=== PATIENT | male | born 1955 | race Caucasian/White ===

== ENCOUNTER → 2018-07-03 | Outpatient (CLI) | payer BC ==
--- NOTE | 2018-07-03 08:40 | US ---
EXAMINATION TYPE: US abdomen limited DATE OF EXAM: 07/03/2018 COMPARISON: NONE CLINICAL HISTORY: R94.5 Abnormal results of lab liver studies; Meds: HTN, aspirin, inhaler EXAM MEASUREMENTS: Liver Length: 15.9 cm Gallbladder Wall: 0.1 cm CBD: 0.2 cm Right Kidney: 10.3 x 4.8 x 5.6 cm Pancreas: hyperechoic Liver: limitedly seen as surveyed intercostally, but no masses seen Gallbladder: non mobile shadowing gallstone noted in neck in LLD and supine positions; size of stone = 1.1 x 0.8 x 0.5cm Evidence for sonographic Flores's sign: no CBD: wnl Right Kidney: inferior pole shadowing renal stone = 0.7 x 0.7 x 0.4cm. IMPRESSION: 1. Gallstone at the neck of the gallbladder. 2. Nonobstructing inferior pole right renal stone
== END ==
LOC: RADUSWWP 07:03
PROVIDERS: ATTEND Family Medicine
DX: K80.20 Calculus of gallbladder without cholecystitis without obstruction (principal); N20.0 Calculus of kidney
CPT/HCPCS: 76705

== ENCOUNTER 2020-05-22 07:24 | Day surgery (SDC) | payer OTHER ==
[2020-05-18 11:40] VITALS: BMI 28.7
[2020-05-22 07:51] VITALS: RESP 16; TEMP 97
[2020-05-22] MEDS ORDERED: LACTATED RINGERS 1,000 ML IV ONE (07:55)
[2020-05-22] MEDS ORDERED: PROPOFOL 10 MG/ML 20 ML VIAL IV ONE (08:23)
--- NOTE | 2020-05-22 08:58 | P.PCN ---
Date of Procedure: 05/22/20 Description of Procedure: BRIEF HISTORY: Patient is a 64-year-old male presenting for outpatient colonoscopy for history of colon polyps/polyp of the colon. Previously had a colonoscopy in 2016 significant for polypectomy. Denies any change in bowel habits, blood per rectum or abdominal pain. PERFORMED: Colonoscopy with polypectomy. PREOPERATIVE DIAGNOSIS: . Personal history of colon polyps, last colonoscopy 2016. ESTIMATED BLOOD LOSS: Minimal. IV sedation per Anesthesia. PROCEDURE: After informed consent was obtained, the patient, was brought into the endoscopy unit. IV sedation was administered by Anesthesia under continuous monitoring. Digital rectal examination was normal. Initially the Olympus CF-190 flexible video colonoscope was then inserted in the rectum, gradually advanced into the cecum without any difficulty. Careful examination was performed as the scope was gradually being withdrawn. Ileocecal valve and the appendiceal orifice were visualized and appeared normal. Prep was excellent. Mucosa of the cecum, ascending colon, transverse colon, descending colon, sigmoid colon, and rectum appeared normal. Multiple large and small mouth diverticula in the sigmoid colon. Diminutive 2 mm transverse colon polyp removed with cold forcep polypectomy.. Retroflexion was performed in the rectum and no lesions were seen. The patient tolerated the procedure well. IMPRESSION: Diminutive transverse colon polyp removed with cold forcep polypectomy. Moderate sigmoid diverticulosis. RECOMMENDATIONS: Findings of this examination were discussed with the patient and his . Okay to resume diet. Okay to resume medications. Await pathology from polypectomy. Would recommend repeat colonoscopy in 7 years for history of colon polyps, pending pathology from polypectomy.
[2020-05-22 09:16] VITALS: BP 114/66; PULSE 44
== END 2020-05-22 09:37 | disposition home or self-care (01) ==
LOC: ORWHC2ENDO 07:24
PROVIDERS: ATTEND Internal Medicine
DX: Z12.11 Encounter for screening for malignant neoplasm of colon (principal); K63.5 Polyp of colon; K57.30 Diverticulosis of large intestine without perforation or abscess without bleeding; Z86.010 Personal history of colon polyps; I10 Essential (primary) hypertension; J44.9 Chronic obstructive pulmonary disease, unspecified; Z79.899 Other long term (current) drug therapy; Z98.890 Other specified postprocedural states; Z87.891 Personal history of nicotine dependence
CPT/HCPCS: 88305; 45380; J2704

== ENCOUNTER 2020-05-25 10:12 | Emergency (ER) | payer OTHER ==
[2020-05-25 10:24] VITALS: RESP 18; TEMP 97.6
[2020-05-25] MEDS ORDERED: HYDROmorphone 0.5 MG/0.5 ML SYRINGE IVP STA ×2 (10:33→11:11)
[2020-05-25] MEDS ORDERED: SODIUM CHLORIDE 0.9% 500 ML 500 ML IV STA (10:33)
[2020-05-25] MEDS ORDERED: ONDANSETRON 4 MG/2 ML VIAL IVP STA (10:33)
--- NOTE | 2020-05-25 10:40 | ED ---
General Adult HPI - General Chief complaint: Abdominal Pain Stated complaint: Post Colonoscopy Abd Pain Time Seen by Provider: 05/25/20 10:25 Source: patient, RN notes reviewed Mode of arrival: wheelchair Limitations: no limitations - History of Present Illness Initial comments: Patient is a 64-year-old female with a past medical history of hepatitis C, hypertension who presents to the emergency room for a chief complaint of abdominal pain. Patient reports that he had a colonoscopy [address] Luong. Patient reports the only finding was a small polyp. He states that his pain started this morning. Patient describes the pain as a dull pain radiating to his back and his right lower quadrant. Patient admits to nausea associated with this pain, denies vomiting. He denies fevers. Denies melena or hematochezia. No diarrhea.Patient has no other complaints at this time including shortness of breath, chest pain, nausea or vomiting, headache, or visual changes. - Related Data Home Medications Medication Instructions Recorded Confirmed Diclofenac Sodium [Voltaren] 75 mg PO DAILY PRN 05/18/20 05/25/20 Metoprolol Tartrate 12.5 mg PO BID 05/18/20 05/25/20 amLODIPine [Norvasc] 10 mg PO HS 05/18/20 05/25/20 lisinopriL 20 mg PO DAILY 05/18/20 05/25/20 Fluticasone Propion/Salmeterol 2 puff INHALATION RT-DAILY 05/25/20 05/25/20 [[place] 250-50 Inhub] Previous Rx's Medication Instructions Recorded HYDROcodone/APAP 5-325MG [[place] 1 tab PO Q6HR PRN #10 tab 05/25/20 5-325] Ibuprofen [Motrin] 600 mg PO Q8HR PRN #20 tab 05/25/20 Ondansetron [Zofran ODT] 4 mg PO Q8HR PRN #15 tab 05/25/20 Tamsulosin [Flomax] 0.4 mg PO DAILY #10 cap 05/25/20 Allergies Allergy/AdvReac Type Severity Reaction Status Date / Time No Known Allergies Allergy Verified 05/25/20 11:31 Review of Systems ROS Statement: Those systems with pertinent positive or pertinent negative responses have been documented in the HPI. ROS Other: All systems not noted in ROS Statement are negative. Past Medical History Past Medical History: Asthma, Hypertension, Liver Disease, Osteoarthritis (OA) Additional Past Medical History / Comment(s): hx hepatitis C, hx vertigo, hx colon polyps History of Any Multi-Drug Resistant Organisms: None Reported Additional Past Surgical History / Comment(s): repair AV malformation brain, liver biopsies, colonoscopies Past Anesthesia/Blood Transfusion Reactions: No Reported Reaction Past Psychological History: No Psychological Hx Reported Smoking Status: Former smoker Past Alcohol Use History: None Reported Past Drug Use History: None Reported - Past Family History Mother Family Medical History: No Reported History General Exam Limitations: no limitations General appearance: alert, in no apparent distress Head exam: Present: atraumatic, normocephalic, normal inspection Eye exam: Present: normal appearance, PERRL, EOMI. Absent: scleral icterus, conjunctival injection, periorbital swelling ENT exam: Present: normal exam, mucous membranes moist Neck exam: Present: normal inspection, full ROM. Absent: tenderness, meningismus Respiratory exam: Present: normal lung sounds bilaterally. Absent: respiratory distress, wheezes, rales, rhonchi, stridor Cardiovascular Exam: Present: regular rate, normal rhythm, normal heart sounds. Absent: systolic murmur, diastolic murmur, rubs, gallop, clicks GI/Abdominal exam: Present: soft, tenderness (tenderness RLQ, no LLQ or upper abdominal tenderness.), normal bowel sounds. Absent: distended, guarding, rebound, rigid Course Vital Signs 05/25/20 05/25/20 05/25/20 10:21 10:45 10:48 Temperature 97.6 F Pulse Rate 52 L 50 L Respiratory 18 18 Rate Blood Pressure 151/92 101/70 O2 Sat by Pulse 97 88 L 96 Oximetry 05/25/20 05/25/20 11:23 12:07 Temperature Pulse Rate 51 L 48 L Respiratory 18 18 Rate Blood Pressure 137/95 109/69 O2 Sat by Pulse 95 94 L Oximetry EKG Findings - EKG Comments: EKG Findings:: Sinus bradycardia, ventricular rate 48, Pr int 198, QTC 427 Medical Decision Making - Medical Decision Making Vitals are stable. Patient bradycardic in the emergency room, states this is normal for him. Patient around 95% room air when I evaluate him, not short of breath. He did have have a lower oxygen level after Dilaudid was given however by discharge was satting normally. CBC CMP unremarkable. Urinalysis does show hematuria likely secondary to kidney stone found on CAT scan. CT abdomen and pelvis with contrast shows a 7 mm calculus in the right UPJ with mild obstructive uropathy and additional kidney stones. There were incidental findings of hypodensity in the right hepatic dome as well as cystic lesion of the pancreas that should be reassessed in 6 months as well as press data megaly and diverticulosis. I discussed all findings with patient and he will follow-up with his doctor. He will was given pain medications and had significant improvement in pain. At this time patient be discharged home with urology follow-up. X-ray KUB was obtained for that purpose. Patient aware to return to the emergency room for any worsening symptoms. - Lab Data Result diagrams: 05/25/20 10:37 05/25/20 10:37 Lab Results 05/25/20 05/25/20 05/25/20 Range/Units 10:37 10:37 10:37 WBC 6.8 (3.8-10.6) k/uL RBC 5.43 (4.30-5.90) m/uL Hgb 16.0 (13.0-17.5) gm/dL Hct 47.0 (39.0-53.0) % MCV 86.5 (80.0-100.0) fL MCH 29.4 (25.0-35.0) pg MCHC 34.0 (31.0-37.0) g/dL RDW 12.4 (11.5-15.5) % Plt Count 224 (150-450) k/uL Neutrophils % 58 % Lymphocytes % 29 % Monocytes % 7 % Eosinophils % 3 % Basophils % 1 % Neutrophils # 4.0 (1.3-7.7) k/uL Lymphocytes # 2.0 (1.0-4.8) k/uL Monocytes # 0.5 (0-1.0) k/uL Eosinophils # 0.2 (0-0.7) k/uL Basophils # 0.0 (0-0.2) k/uL Sodium 137 (137-145) mmol/L Potassium 4.1 (3.5-5.1) mmol/L Chloride 102 (98-107) mmol/L Carbon Dioxide 27 (22-30) mmol/L Anion Gap 8 mmol/L BUN 18 (9-20) mg/dL Creatinine 1.02 (0.66-1.25) mg/dL Est GFR (CKD-EPI)AfAm 90 (>60 ml/min/1.73 sqM) Est GFR (CKD-EPI)NonAf 78 (>60 ml/min/1.73 sqM) Glucose 124 H (74-99) mg/dL Plasma Lactic Acid [place] (0.7-2.0) mmol/L Calcium 9.0 (8.4-10.2) mg/dL Total Bilirubin 1.5 H (0.2-1.3) mg/dL AST 25 (17-59) U/L ALT 21 (4-49) U/L Alkaline Phosphatase 62 (38-126) U/L Total Protein 7.3 (6.3-8.2) g/dL Albumin 4.6 (3.5-5.0) g/dL Amylase 81 (30-110) U/L Lipase 279 (23-300) U/L Urine Color Yellow Urine Appearance Clear (Clear) Urine pH 6.5 (5.0-8.0) Ur Specific [place] >1.050 H (1.001-1.035) Urine Protein Negative (Negative) Urine Glucose (UA) Negative (Negative) Urine Ketones Negative (Negative) Urine Blood Large H (Negative) Urine Nitrite Negative (Negative) Urine Bilirubin Negative (Negative) Urine Urobilinogen <2.0 (<2.0) mg/dL Ur Leukocyte Esterase Negative (Negative) Urine RBC 109 H (0-5) /hpf Urine WBC 1 (0-5) /hpf Urine Mucus Rare H (None) /hpf 15/20 Range/Units 10:37 WBC (3.8-10.6) k/uL RBC (4.30-5.90) m/uL Hgb (13.0-17.5) gm/dL Hct (39.0-53.0) % MCV (80.0-100.0) fL MCH (25.0-35.0) pg MCHC (31.0-37.0) g/dL RDW (11.5-15.5) % Plt Count (150-450) k/uL Neutrophils % % Lymphocytes % % Monocytes % % Eosinophils % % Basophils % % Neutrophils # (1.3-7.7) k/uL Lymphocytes # (1.0-4.8) k/uL Monocytes # (0-1.0) k/uL Eosinophils # (0-0.7) k/uL Basophils # (0-0.2) k/uL Sodium (137-145) mmol/L Potassium (3.5-5.1) mmol/L Chloride (98-107) mmol/L Carbon Dioxide (22-30) mmol/L Anion Gap mmol/L BUN (9-20) mg/dL Creatinine (0.66-1.25) mg/dL Est GFR (CKD-EPI)AfAm (>60 ml/min/1.73 sqM) Est GFR (CKD-EPI)NonAf (>60 ml/min/1.73 sqM) Glucose (74-99) mg/dL Plasma Lactic Acid [place] 1.5 (0.7-2.0) mmol/L Calcium (8.4-10.2) mg/dL Total Bilirubin (0.2-1.3) mg/dL AST (17-59) U/L ALT (4-49) U/L Alkaline Phosphatase (38-126) U/L Total Protein (6.3-8.2) g/dL Albumin (3.5-5.0) g/dL Amylase (30-110) U/L Lipase (23-300) U/L Urine Color Urine Appearance (Clear) Urine pH (5.0-8.0) Ur Specific [place] (1.001-1.035) Urine Protein (Negative) Urine Glucose (UA) (Negative) Urine Ketones (Negative) Urine Blood (Negative) Urine Nitrite (Negative) Urine Bilirubin (Negative) Urine Urobilinogen (<2.0) mg/dL Ur Leukocyte Esterase (Negative) Urine RBC (0-5) /hpf Urine WBC (0-5) /hpf Urine Mucus (None) /hpf Disposition Clinical Impression: Kidney stone on right side Disposition: HOME SELF-CARE Condition: Good Instructions (If sedation given, give patient instructions): Kidney Stones (ED) Prescriptions: Tamsulosin [Flomax] 0.4 mg PO DAILY #10 cap Ibuprofen [Motrin] 600 mg PO Q8HR PRN #20 tab PRN Reason: Pain HYDROcodone/APAP 5-325MG [[place] 5-325] 1 tab PO Q6HR PRN #10 tab PRN Reason: Pain Ondansetron [Zofran ODT] 4 mg PO Q8HR PRN #15 tab PRN Reason: Nausea Is patient prescribed a controlled substance at d/c from ED?: Yes When asked, does pt state using other controlled substances?: No If prescribed controlled substance>3 days was MAPS reviewed?: Prescribed <3 Days If opioid is for acute pain is fill amount 7 days or less?: Yes If Rx opioid, was Start Talking consent form obtained?: Yes Referrals: Jose A Jordan DO [Primary Care Provider] - 1-2 days Norm Roberson MD [STAFF PHYSICIAN] - 1-2 days Time of Disposition: 12:54
[2020-05-25 10:50] LABS: Basophils % (A) 1 %; Eosinophils # (A) 0.2 k/uL (0-0.7); Eosinophils % (A) 3 %; Lymphocytes % (A) 29 %; MCH 29.4 pg (25.0-35.0); MCV 86.5 fL (80.0-100.0); Mean Platelet Volume 6.5; Monocytes # (A) 0.5 k/uL (0-1.0); Monocytes % (A) 7 %; Neutrophils % (A) 58 %; Platelet Count 224 k/uL (150-450); RBC 5.43 m/uL (4.30-5.90); RDW 12.4 % (11.5-15.5); WBC 6.8 k/uL (3.8-10.6)
[2020-05-25 11:07] LABS: Albumin 4.6 g/dL (3.5-5.0); Potassium 4.1 mmol/L (3.5-5.1); Total Bilirubin 1.5 mg/dL (0.2-1.3); Total Protein 7.3 g/dL (6.3-8.2)
--- NOTE | 2020-05-25 11:53 | CT ---
EXAMINATION TYPE: CT abdomen pelvis w con DATE OF EXAM: 05/25/2020 COMPARISON: NONE HISTORY: 64-year-old male Right flank pain post colonoscopy TECHNIQUE: Contiguous axial scanning of the abdomen and pelvis following administration of 100 ml Iso colten 300 IV contrast. Delayed images through the kidneys and coronal/sagittal reconstructions perform ed. CT DLP: 1258.7 mGycm Automated exposure control for dose reduction was used. FINDINGS: Heart normal size without pericardial effusion. Some strandy dependent atelectasis in the visualized lower lungs. A vague 1.4 cm area of hypodensity along the right hepatic dome may be technical due to early portal venous phase imaging. 3-6 month follow-up CT recommended to reassess. Portal venous system is patent. No biliary ductal dilatation. Gallbladder, adrenal glands, and spleen appear within normal limits. Nonspecific 9 mm cystic lesion uncinate process of the pancreas. A couple of nonobstructive calculi i n the lower pole of the left kidney measuring up to 5 mm. Nonobstructive 5 mm right lower pole renal calculus with an additional 7 mm calculus at the right UPJ with mild hydronephrosis. Some scattered prominent left periaortic lymph nodes in the retroperitoneum measuring up to 7 mm. No mesenteric lymphadenopathy. No dilated small bowel, free fluid, free air. Normal appendix. Mild stool burden. Sigmoid diverticulosis. No pericolonic inflammatory change. Bladder distended. Prostate gland enlarged at 5.8 cm wide with patchy central enhancement. Left-sided pelvic phlebolith. No abnormal fluid collection in the pelvis or pelvic lymphadenopathy. Bones: Mild degenerative change of both hips. Advanced degenerative disc disease T12-L1, L1-L2, and L 4-L5. Multilevel hypertrophic facet arthropathy. Grade 1 retrolisthesis at T12-L1 and L1-L2 as well as L4-L5. IMPRESSION: 1. A 7 MM CALCULUS AT THE RIGHT UPJ WITH MILD OBSTRUCTIVE UROPATHY. 2. ADDITIONAL NONOBSTRUCTIVE BILATERAL RENAL CALCULI MEASURING UP TO 5 MM. 3. A VAGUE 1.4 CM HYPODENSITY IN THE RIGHT HEPATIC DOME MAY BE TECHNICAL DUE TO EARLY POSTCONTRAST IM AGING. SIX-MONTH FOLLOW-UP CONTRAST ENHANCED CT RECOMMENDED TO REASSESS. 4. 9 MM CYSTIC LESION OF THE UNCINATE PROCESS OF THE PANCREAS SHOULD ALSO BE REASSESSED AT THE 6 BLAS H FOLLOW-UP. 5. SIGMOID DIVERTICULOSIS WITHOUT ACUTE DIVERTICULITIS. 6. PROSTATOMEGALY AT 5.8 CM WIDE.
[2020-05-25 11:58] LABS: Appearance,Urine Clear (Clear); Bilirubin,Urine Negative (Negative); Blood,Urine Large (Negative); Color,Urine Yellow; Glucose,Urine (UA) Negative (Negative); Ketones,Urine Negative (Negative); Leukocyte Esterase,Urine Negative (Negative); Mucus,Urine Rare /hpf; Nitrite,Urine Negative (Negative); PH, Urine 6.5 (5.0-8.0); Protein,Urine Negative (Negative); RBC,Urine 109 /hpf (0-5); Urobilinogen,Urine <2.0 mg/dL (<2.0); WBC,Urine 1 /hpf (0-5)
[2020-05-25] MEDS ORDERED: KETOROLAC 15 MG/ML 1 ML VIAL IVP STA (12:00)
[2020-05-25 12:02] LABS: Specific Gravity,Urine >1.050 (1.001-1.035)
[2020-05-25 13:01] VITALS: BP 124/82; PULSE 49
--- NOTE | 2020-05-25 13:14 | XR ---
EXAMINATION TYPE: XR KUB portable DATE OF EXAM: 05/25/2020 COMPARISON: CT abdomen pelvis 05/25/2020 HISTORY: Stone right-sided TECHNIQUE: AP abdomen FINDINGS: There is contrast within the renal collecting systems. This is more dilated and persistent on the right. Distal ureters visualized appear normal. Normal colonic bowel gas is present. Psoas margins are normal. Organomegaly is not evident. IMPRESSION: 1. Mild right hydronephrosis with delayed excretion on the right compared to the left. 2. There is prominence of the right renal collecting system to the reported level of the proximal ure teral pelvic junction stone
== END 2020-05-25 13:05 | disposition home or self-care (01) ==
LOC: EC 10:12
DX: N13.2 Hydronephrosis with renal and ureteral calculous obstruction (principal); K86.9 Disease of pancreas, unspecified; I10 Essential (primary) hypertension; J45.909 Unspecified asthma, uncomplicated; Z79.899 Other long term (current) drug therapy; Z79.51 Long term (current) use of inhaled steroids; Z87.891 Personal history of nicotine dependence
CPT/HCPCS: 36415; 93005; 80053; 82150; 83605; 83690; 85025; 81001; 74018; 74177; 99285; 96374; 96375 ×2; 96376; J2405; J1885; J1170; Q9967

== ENCOUNTER → 2020-06-14 | Outpatient (CLI) | payer OTHER | END | disposition home or self-care (01) | LOC: LABWHC1 14:00 | PROVIDERS: ATTEND Family Medicine | DX: R50.9 Fever, unspecified (principal); Z20.828 Contact with and (suspected) exposure to other viral communicable diseases | CPT/HCPCS: U0003; C9803 ==

== ENCOUNTER → 2020-06-27 | Outpatient (CLI) | payer OTHER | END | disposition home or self-care (01) | LOC: LABWHC1 11:17 | PROVIDERS: ATTEND Physician Assistant | DX: Z20.828 Contact with and (suspected) exposure to other viral communicable diseases (principal) | CPT/HCPCS: U0003; C9803 ==

== ENCOUNTER → 2020-09-15 | Outpatient (CLI) | payer OTHER ==
--- NOTE | 2020-09-15 10:00 | XR ---
EXAMINATION TYPE: XR KUB DATE OF EXAM: 09/15/2020 HISTORY: Pain Comparison: None.Single KUB is submitted for interpretation. Findings: Right renal calculi: None Visualized. Right ureteral calculi: 6 mm calculus mid right ureter at the L3-4 level. Left renal calculi: None Visualized. Left ureteral calculi: None Visualized. Pelvic calcifications: None Visualized. Bowel gas pattern is unremarkable. No free air. No mass effects. IMPRESSION: 1. 6 mm calculus mid right ureter at the L3-4 level.
== END | disposition home or self-care (01) ==
LOC: RADXRMAIN 09:05
PROVIDERS: ATTEND Urology
DX: N20.1 Calculus of ureter (principal)
CPT/HCPCS: 74018

== ENCOUNTER 2020-09-19 11:49 | Day surgery (SDC) | payer OTHER ==
[2020-09-15 15:26] VITALS: BMI 27.8
[~2020-09-19 11:49] MED LIST: DEXAMETHASONE SOD PHOSPHATE 4 MG/ML 1 ML VIAL IV ONE; HYDROmorphone 0.5 MG/0.5 ML SYRINGE IVP PRN; LACTATED RINGERS 1,000 ML IV SCH; MIDAZOLAM 2 MG/2 ML VIAL IV PRN; ONDANSETRON 4 MG/2 ML VIAL IVP ONE; SCOPOLAMINE 1.5MG/72HR PATCH TRANSDERM ONE
[2020-09-19 12:28] VITALS: TEMP 97.7
--- NOTE | 2020-09-19 12:39 | XR ---
EXAMINATION TYPE: XR KUB portable DATE OF EXAM: 09/19/2020 12:32 PM CLINICAL HISTORY: Right renal calculus. TECHNIQUE: Two supine KUB images of the abdomen are obtained. COMPARISON: Abdominal x-ray [address] abdomen and pelvis May 25, 2020r FINDINGS: Stable 8 mm calculus left kidney mid to lower pole level just below 11th rib. The 5 mm righ t renal calculus mid to lower pole level less well seen on plain films. There is however visualizatio n of 9 mm proximal right ureter calculus currently at inferior L4 level has passed slightly distally since CT not significant changed in position from most recent x-ray. Overall nonobstructive bowel gas pattern with some prominence of colonic fecal material. Tiny sclerot ic lesion right iliac bone near sacroiliac joint presumed benign bone island redemonstrated. Underlyi ng scoliosis with multilevel spurring and disc space narrowing in the spine greatest at L1-L2 level. [id number] axial joint space loss in both hips. IMPRESSION: As above.
[2020-09-19] MEDS ORDERED: LIDOCAINE 1% (10MG/ML) FOR IV START INTRADERMA ONE (12:41)
[2020-09-19 12:53] LABS: HCT 43.5 % (39.0-53.0); HGB 15.1 gm/dL (13.0-17.5); MCH 29.2 pg (25.0-35.0); MCHC 34.6 g/dL (31.0-37.0); MCV 84.5 fL (80.0-100.0); Platelet Count 187 k/uL (150-450); RBC 5.15 m/uL (4.30-5.90); RDW 13.1 % (11.5-15.5)
[2020-09-19 13:03] LABS: Calcium 9.3 mg/dL (8.4-10.2); Potassium 4.2 mmol/L (3.5-5.1)
[2020-09-19] MEDS ORDERED: fentaNYL (PF) 50 MCG/ML 2 ML AMP ONE (13:40)
[2020-09-19] MEDS ORDERED: PROPOFOL 10 MG/ML 20 ML VIAL IV ONE (13:40)
[2020-09-19] MEDS ORDERED: ePHEDrine SULFATE/0.9% NACL/PF 50 MG/5 ML SYRINGE IV ONE (13:40)
[2020-09-19] MEDS ORDERED: LIDOCAINE 1% INJ 10MG/ML (20 ML MDV) ONE (13:40)
[2020-09-19] MEDS ORDERED: MIDAZOLAM 2 MG/2 ML VIAL ONE (13:40)
[2020-09-19] MEDS ORDERED: LACTATED RINGERS 1,000 ML IV ONE (14:25)
--- NOTE | 2020-09-19 14:39 | P.OP ---
Date of Procedure: 09/19/20 Preoperative Diagnosis: Right ureteral calculus Postoperative Diagnosis: Same Procedure(s) Performed: Cystoscopy, right ureteroscopy laser lithotripsy, placement of 6 x 26 stent Anesthesia: NOEL Surgeon: Norm Roberson Estimated Blood Loss (ml): 20 Pathology: other (Stone) Condition: stable Disposition: PACU Indications for Procedure: Patient is 65. His an 8 mm midureteral stone he comes for ureteroscopy and laser lithotripsy Description of Procedure: Patient brought to the operating suite. He is given general anesthesia. Placed lithotomy position with sterile prep and drape. Cystoscopy is normal. The prostate shows some middle lobe. The bladder mucosa is unremarkable. The right ureteral orifice is identified. Semirigid ureteroscope was passed up the right ureter up to the stone. With the 200 laser probe the stone was broken into tiny fragments. Several fragments are flushed out. Then the procedure I elect to leave the stent because the edema where the stone in the right ureter was a. An 035 wires passed the ureteroscope. The ureteroscope was removed. The wires backloaded onto the cystoscope. Over the wires passed a 6 x 26 double-J catheter that coils in the renal pelvis and the bladder the bladder strain the stone fragments were collected the patient awake and returned recovery in good condition. He'll be discharged home upon recovery.
--- NOTE | 2020-09-19 14:47 | FL ---
EXAMINATION TYPE: FL guidance operating room DATE OF EXAM: 09/19/2020 CLINICAL HISTORY: Right-sided kidney stone. TECHNIQUE: Fluoroscopy. COMPARISON: Abdominal x-ray earlier today. FINDINGS: Fluoroscopic guidance was provided during right stone treatment procedure performed by Dr. Roberson. A total of 12 seconds of fluoroscopic time was utilized during the procedure and 2 spot imag es was acquired. Intraoperative images obtained show access right UVJ with advancement of guidewire i nto collecting system. IMPRESSION: As Above.
[2020-09-19] MEDS ORDERED: HYDROcodone/APAP 5-325MG 1 EACH TAB ONE (15:44)
[2020-09-19] MEDS ORDERED: HYDROcodone/APAP 5-325MG 1 EACH TAB PO ONE (15:46)
[2020-09-19 16:19] VITALS: BP 157/83; PULSE 50
[2020-09-19 16:58] VITALS: RESP 18
== END 2020-09-19 17:15 | disposition home or self-care (01) ==
LOC: OR 11:49
PROVIDERS: ATTEND Urology
DX: N20.1 Calculus of ureter (principal); I10 Essential (primary) hypertension; J44.9 Chronic obstructive pulmonary disease, unspecified; G47.33 Obstructive sleep apnea (adult) (pediatric); Z86.19 Personal history of other infectious and parasitic diseases; Z79.899 Other long term (current) drug therapy
CPT/HCPCS: 80048; 85027; 82365; 74018; 52356; C2625; C1769; J2250; J0690; J2001; J3010; J2704

== ENCOUNTER → 2023-12-04 | Outpatient (CLI) | payer MEDICARE ==
--- NOTE | 2023-12-04 10:44 | US ---
EXAMINATION TYPE: US arterial LE single level DATE OF EXAM: 12/04/2023 10:01 AM CLINICAL INDICATION: Male, 68 years old with history of M79.662 PAIN IN LEFT LOWER LEG, M79.661; History of: Smoker: Yes Hypertension: Yes Diabetic: No Hyperlipidemia: No TIA/CVA: No Previous Vascular Surgery: Brain AVM CAD: No IL: No Vascular Ulcers: No Claudication: No Gangrene: No Doppler Waveforms: Right: Triphasic Left: Triphasic Right Brachial Pressure: 143 Left Brachial Pressure: 152 Ankle-Brachial Indices: Right: 1.16 Left: 1.16 (Vessel hardening > 1.4; Normal 0.9 - 1.4, Moderate 0.7 - 0.9, Severe 0.5-0.7) Toe Brachial Indices: Right: 0.74 Left: 0.83 IMPRESSION: No evidence of significant peripheral arterial disease in the lower extremities.
== END | disposition home or self-care (01) ==
LOC: RADUSWWP 09:35
PROVIDERS: ATTEND Family Medicine
DX: M79.661 Pain in right lower leg (principal); M79.662 Pain in left lower leg; I10 Essential (primary) hypertension
CPT/HCPCS: 93922

== ENCOUNTER → 2025-03-01 | Outpatient (CLI) | payer MEDICARE ==
--- NOTE | 2025-03-01 13:01 | CT ---
EXAMINATION TYPE: CT left knee - [facility] Protocol DATE OF EXAM: 03/01/2025 11:14 AM COMPARISON: None. CLINICAL INDICATION: Male, 69 years old with history of M17.12 UNILATERAL PRIMARY OSTEOARTHRITIS, LEF T KNE, left knee NOAH, pain TECHNIQUE: [facility] presurgical planning of the left knee. Images were obtained in the axial plane at 2 m m thick sections through the hip and ankle and 1 mm thick sections through the knee. Reconstructed im ages in the coronal and sagittal plane are reviewed. Contrast used: mL of , (none if empty) Oral contrast used: (none if empty) CT DLP: 590 mGycm, Automated exposure control for dose reduction was used. FINDINGS: Hip: Femoral heads articulate with the acetabulum. Fractures are evident. Diffuse joint space narrowi ng is noted. Note is made of scattered diverticular changes without evidence of acute diverticulitis within the si gmoid colon within the [id number]. Knee: Small joint effusion is present. There is loss of medial compartment joint space. Medial femoral condylar and tibial plateau spurring is present. There is mild/moderate narrowing of the lateral compartment joint space. Lateral tibial p lateau and condylar spurring is present. Ankle: No acute fractures evident. Joint spaces are preserved. Soft tissues appear normal. IMPRESSION: 1. CT for [facility] knee presurgical planning. [facility], Workstation: [facility], 03/01/2025 12:59 PM
== END | disposition home or self-care (01) ==
LOC: RADCTMAIN 10:36
PROVIDERS: ATTEND Orthopaedic Surgery
DX: Z01.818 Encounter for other preprocedural examination (principal); M17.12 Unilateral primary osteoarthritis, left knee

== ENCOUNTER → 2025-03-01 | Outpatient (CLI) | payer MEDICARE ==
[2025-03-01 12:16] LABS: INR 1.0 (<1.2); Partial Thromboplastin Time 23.7 sec (22.0-30.0); Prothrombin Time 11.3 sec (10.0-12.5)
[2025-03-01 15:33] LABS: ALT 31 U/L (10-49); AST 26 U/L (14-35); Albumin 4.4 g/dL (3.8-4.9); Albumin/Globulin Ratio 2.10 Ratio (1.60-3.17); Alkaline Phosphatase 84 U/L (41-126); Anion Gap 12.80 mmol/L (4.00-12.00); BUN/Creat Ratio 14.00 Ratio (12.00-20.00); Blood Urea Nitrogen 15.4 mg/dL (9.0-27.0); Calcium 8.9 mg/dL (8.7-10.3); Carbon Dioxide 23.2 mmol/L (21.6-31.8); Chloride 102 mmol/L (96-109); Globulin 2.1 g/dL (1.6-3.3); Glucose 143 mg/dL (70-110); Potassium 3.7 mmol/L (3.5-5.5); Sodium 138 mmol/L (135-145); Total Protein 6.5 g/dL (6.2-8.2)
[2025-03-01 15:52] LABS: HCT 50.6 % (39.6-50.0); HGB 16.4 g/dL (13.0-17.0); MCH 28.1 pg (27.0-32.0); MCHC 32.4 g/dL (32.0-37.0); MCV 86.8 FL (80.0-97.0); NRBC Per 100 WBC 0 X 10*3/uL (0.00-0.01); Platelet Count 190 X 10*3/uL (140-440); RBC 5.83 X 10*6/uL (4.40-5.60); RDW 13.1 % (11.5-14.5); WBC 5.82 X 10*3/uL (4.50-10.00)
== END | disposition home or self-care (01) ==
LOC: LABPAT 11:14
PROVIDERS: ATTEND Orthopaedic Surgery
DX: Z01.818 Encounter for other preprocedural examination (principal); Z22.322 Carrier or suspected carrier of Methicillin resistant Staphylococcus aureus; E11.9 Type 2 diabetes mellitus without complications; M17.12 Unilateral primary osteoarthritis, left knee
CPT/HCPCS: 80053; 83036; 85027; 85610; 85730; 87070; 93005